=== PATIENT | male | born 1955 | race Caucasian/White ===

== ENCOUNTER 2018-10-25 17:49 | Inpatient (IN) | payer BC ==
[~2018-10-25 17:49] MED LIST: ISOVUE-370 76%-LOCM 1 ML ONE
[2018-10-25 18:17] LABS: #Basophils 0.1 thou/uL (0.0-0.2); #Eosinphils 0.2 thou/uL (0.0-0.7); #Lymphocytes 3.4 thou/uL (1.20-3.40); %Basophils 0.9 % (0.0-1.0); %Eosinophils 1.5 % (0.0-10.0); %Lymphocytes 26.8 % (21.0-51.0); %Monocytes 8.1 % (0.0-10.0); %Neutrophils 62.8 % (42.0-75.0); Hemoglobin 14.8 g/dL (14.0-18.0); Mean Corpuscular HGB CONC 32.6 g/dL (32.0-36.0); Mean Corpuscular Hemoglobin 28.2 pg (27.0-31.0); Mean Corpuscular Volume 86.5 fL (78.0-98.0); Mean Platelet Volume 7.7 fL (7.4-10.4); Platelet Count 242 thou/uL (130-400); Red Blood Cell (RBC) Count 5.24 mill/uL (4.70-6.10); White Blood Cell (WBC) Count 12.7 thou/uL (4.8-10.8)
[2018-10-25] MEDS ORDERED: Aspirin Chewable 81 MG TAB ONE (18:35)
[2018-10-25] MEDS ORDERED: Magnesium 2 GM/50 ML BAG (IN WATER) ONE (18:35)
[2018-10-25 18:41] LABS: ALT (SGPT) 53 U/L (8-55); AST (SGOT) 46 U/L (5-34); Albumin 3.5 g/dL (3.4-4.8); Alkaline Phosphatase 51 U/L (40-150); Anion Gap 13 mmol/L (10-20); BUN (Urea Nitrogen) 25 mg/dL (8.4-25.7); Bilirubin, Total 0.5 mg/dL (0.2-1.2); CK (CPK) 196 U/L (30-200); Calc. Creatinine Clearance 0 mL/min (70-130); Calcium 8.6 mg/dL (7.8-10.44); Carbon Dioxide 22 mmol/L (23-31); Chloride 108 mmol/L (98-107); Estimated GFR-MDRD 75; Globulin 2.3 g/dL (2.4-3.5); Glucose 86 mg/dL (80-115); INR-International Normal Ratio 1.1; Potassium 4.2 mmol/L (3.5-5.1); Protein, Total 5.8 g/dL (5.8-8.1); Prothrombin Time 14.5 SEC (12.0-14.7); Sodium 139 mmol/L (136-145)
[2018-10-25 18:42] LABS: PTT 27.9 SEC (22.9-36.1)
[2018-10-25 18:43] LABS: D-Dimer Test 3.36 *mcg/mL (0.27-0.43)
--- NOTE | 2018-10-25 18:51 | RAD ---
Frontal radiograph chest: 10/25/2018 COMPARISON: None 10/25/2018 HISTORY: Difficulty breathing, shortness of breath FINDINGS: Cardiac silhouette is prominent. Lungs are clear. No pneumothorax, pleural fluid, focal con solidation, or alveolar edema. IMPRESSION: Prominent cardiac silhouette with no focal consolidation or alveolar edema.
--- NOTE | 2018-10-25 19:21 | CT ---
CT angiogram chest: 10/25/2018 COMPARISON: None HISTORY: Shortness of breath, atrial fibrillation with rapid ventricular rate, assess for pulmonary e mbolism TECHNIQUE: Axial CT imaging at 2.5 mm intervals through the chest with IV contrast using a CT angiogr am protocol with coronal and sagittal 3-D reformatted imaging FINDINGS: No lymphadenopathy in the chest. Imaged upper abdomen demonstrates reflux of contrast media into the IVC and hepatic veins suggesting suboptimal cardiac output. Tiny pleural effusion noted on the right. Scattered coronary arterial calcification is present. No evidence for pulmonary arterial embolism. No pneumothorax. There is a nodule within the posterior aspect of the left upper lobe measuring 6 mm on image 30. There is a nodule within the left lower lobe on image 87 measuring approximately 1 cm. There is a nodule along the course of the minor fissur e measuring 7-8 mm. Review of the osseous structures demonstrates no worrisome lytic or blastic bone lesion. IMPRESSION: No evidence for pulmonary arterial embolism. Bilateral pulmonary nodules are noted measuring up to approximately 1 cm within the left lower lobe. Follow-up should be based on risk factors for malignancy. If the patient is high risk of malignancy, a PET/CT is advised. If the patient is low risk for malignancy, a follow-up CT examinatio n is advised in 3 months. Coronary arterial calcification. Reflux of contrast media into the hepatic veins and inferior vena cava as detailed above.
[2018-10-25] MEDS ORDERED: Acetaminophen 325 MG TAB PO PRN (21:15)
[2018-10-25] MEDS ORDERED: Ondansetron PF 4 MG/2 ML Vial IVP PRN (21:15)
[2018-10-25] MEDS ORDERED: Ondansetron ODT 4 MG TAB PO PRN (21:15)
[2018-10-25] MEDS ORDERED: Diltiazem 125 MG in Sodium Chloride 0.9% 100 ML IVPB SCH (21:30)
[2018-10-25 21:43] LABS: Troponin I 0.018 ng/mL (< 0.028)
[2018-10-25] MEDS ORDERED: Enoxaparin Sodium 100 MG/ML SYRINGE SC SCH (21:45)
[2018-10-25] MEDS ORDERED: Enoxaparin Sodium 40 MG/0.4 ML SYRINGE SC SCH (21:45)
[2018-10-25] MEDS ORDERED: Enoxaparin Sodium 40 MG/0.4 ML SYRINGE ONE (22:27)
[2018-10-25] MEDS ORDERED: Enoxaparin Sodium 100 MG/ML SYRINGE ONE (22:27)
[2018-10-26 00:55] LABS: Troponin I Less than 0.010 ng/mL (< 0.028)
--- NOTE | 2018-10-26 04:00 | HP ---
PRIMARY CARE DOCTOR: Dr. Brooke Green. CODE STATUS: Full code. TIME OF EVALUATION: 8:00 p.m. CHIEF COMPLAINT: Shortness of breath. HPI: This is a 63 y/o m pt with no significant pmh presented with SOB, The symptoms were present for the past week with no clear triggers, no alleviating factors associated with feeling dizzy and lightheaded. The symptoms were mild to moderate. The patient visited his doctor and an EKG was done. The patient was found to be in atrial fibrillation with RVR. For that reason, he was sent to the ER. The patient was controlled with diltiazem 20 mg IV and placed on Cardizem drip. At the time of my examination, rate is in control. The patient is on a drip. We will place on tele, symptoms have improved. CTA was negative for PE. Patient has associated paroxysmal nocturnal dyspnea. REVIEW OF SYSTEMS: CONSTITUTIONAL: No fever, chills, or generalized weakness. RESPIRATORY: No cough, sputum production. The patient did have some shortness of breath the past week. No sore throat associated. CARDIOVASCULAR: No chest pain or palpitations. GASTROINTESTINAL: No nausea, no vomiting, diarrhea, or abdominal pain. [employer]ATOR: The patient is dizzy and feeling lightheaded. No headache. GENITOURINARY: No burning on urination. EXTREMITIES: Bilateral leg swelling. All other systems were reviewed and negative except for the findings mentioned above. PAST MEDICAL HISTORY: The patient reported no past medical history. PAST SURGICAL HISTORY: Right eye surgery, hernia surgery. PSYCH HISTORY: No previous psych history. FAMILY HISTORY:Reviewed and non contributory to current presentation. SOCIAL HISTORY: No alcohol. No drugs. No smoking history. ALLERGIES: NO KNOWN DRUG ALLERGIES REPORTED. MEDICATIONS: None. PHYSICAL EXAMINATION: VITAL SIGNS: On presentation blood pressure 122/82 with heart rate 99, respiratory rate was 19, temperature 98.1. Pain was 0/10. Oxygen saturation was 96% on room air. GENERAL APPEARANCE: The patient is alert, oriented, not in acute distress. HEENT: Eyes, normal conjunctiva. Moist oral mucosa. Anicteric. No JVD. RESPIRATORY: Bilateral air entry. No rales. No wheezing. Symmetric expansion. CARDIOVASCULAR: The patient is tachycardic. Irregular rhythm. No murmurs. No gallop. Bilateral leg edema. ABDOMEN: Soft, the patient is obese. Normal bowel sounds. MUSCULOSKELETAL: Baseline range of motion and strength. No tenderness. SKIN: Warm, intact. No pallor. No rash. No redness. Peripheral pulses are present. Capillary refill seems to be intact. NEUROLOGIC: No evidence of any new focal weakness. Baseline speech. Cranial nerves seems to be intact. PSYCHIATRIC: The patient is in good mood. No anxiety. Optimal judgment. LABORATORY DATA: EKG was reviewed. The patient has atrial fibrillation with RVR. Heart rate of 115, QRS 120, QT corrected 442. Chest CT angio was done. The patient has bilateral pulmonary nodules measuring up to approximately 1 cm in the left lower lobe. Followup should be based on risk factor for malignancy, patient is at risk of malignancy. A PET the CT is advised. The patient is low risk of malignancy. A followup CT examination is advised in 3 months. Coronary arterial calcification , reflux of contrast media into the hepatic vein and inferior vena cava as detailed above. This suggest suboptimal cardiac output. Chest x-ray was reviewed. The patient has prominent cardiac silhouette with no focal consolidation or alveolar edema. LABORATORY DATA: Reviewed. The patient has white count 12.7, hemoglobin 14.8, MCV 86.5, platelet count 242. Coagulation was normal except for the D-dimer that was 3.36. Chemistry; the patient has sodium 139, potassium 4.2, chloride 108, carbon dioxide 22, anion gap 13, BUN 25, creatinine 1.01, GFR 75, glucose 86, calcium 9.6, total bilirubin 0.5, AST 46, ALT 53, alkaline phosphatase 51. Troponins were negative x3. Beta natriuretic peptide 587. Serum total protein 5.8, albumin 3.5, globulin 2.3. ASSESSMENT AND PLAN: The patient will be placed in the hospital with following medical problems: 1. Atrial fibrillation with rapid ventricular response. The patient has been started on Cardizem drip. The patient will follow with Dr. Jenkins as outpatient , the last followup of the patient was around 6 months ago. We will consult Dr. Jenkins for further recommendations. He also reported he had an echo done that is not in our records, might have been done by Dr. Jenkins as outpatient. Therefore , no other procedures or further workup as Cardiology evaluation is done. 2. Patient is obese, weight loss is advised. 3. Deep venous thrombosis prophylaxis. Job ID: [id number] [facility]
[2018-10-26 04:54] LABS: #Basophils 0.1 thou/uL (0.0-0.2); #Eosinphils 0.3 thou/uL (0.0-0.7); #Lymphocytes 2.6 thou/uL (1.20-3.40); #Neutrophils 7.3 thou/uL (1.40-6.50); %Basophils 0.8 % (0.0-1.0); %Eosinophils 2.6 % (0.0-10.0); %Lymphocytes 22.8 % (21.0-51.0); %Monocytes 9.1 % (0.0-10.0); %Neutrophils 64.7 % (42.0-75.0); Hemoglobin 14.2 g/dL (14.0-18.0); Mean Corpuscular HGB CONC 33.1 g/dL (32.0-36.0); Mean Corpuscular Hemoglobin 28.8 pg (27.0-31.0); Mean Corpuscular Volume 87.1 fL (78.0-98.0); Mean Platelet Volume 8.3 fL (7.4-10.4); Platelet Count 223 thou/uL (130-400); RBC Distribution Width 12.9 % (11.5-14.5); Red Blood Cell (RBC) Count 4.94 mill/uL (4.70-6.10); White Blood Cell (WBC) Count 11.2 thou/uL (4.8-10.8)
[2018-10-26 05:14] LABS: Anion Gap 11 mmol/L (10-20); BUN (Urea Nitrogen) 23 mg/dL (8.4-25.7); Calc. Creatinine Clearance 0 mL/min (70-130); Calcium 8.3 mg/dL (7.8-10.44); Carbon Dioxide 24 mmol/L (23-31); Chloride 110 mmol/L (98-107); Estimated GFR-MDRD 80; Glucose 115 mg/dL (80-115); Potassium 4.2 mmol/L (3.5-5.1); Sodium 141 mmol/L (136-145)
[2018-10-26] MEDS ORDERED: Enoxaparin Sodium 100 MG/ML SYRINGE ONE (08:59)
[2018-10-26] MEDS ORDERED: Aspirin 325 MG TAB ONE (08:59)
[2018-10-26] MEDS ORDERED: Enoxaparin Sodium 40 MG/0.4 ML SYRINGE ONE (08:59)
[2018-10-26] MEDS: Enoxaparin Sodium 40 MG/0.4 ML SYRINGE SC SCH ×2 (09:06→20:12)
[2018-10-26] MEDS: Enoxaparin Sodium 100 MG/ML SYRINGE SC SCH ×2 (09:06→20:12)
[2018-10-26] MEDS: Aspirin 325 mg Enteric Coated Tablet PO SCH (09:06)
--- NOTE | 2018-10-26 15:47 | PDOC.PN ---
- Subjective Encounter Start Date: 10/26/18 Encounter Start Time: 15:45 Subjective: feels much better. no CP/palpitations/SOB//edema - Objective Resuscitation Status - Order Detail: 10/25/18 21:15 Resuscitation Status Routine Resuscitation Status: FULL: Full Resuscitation MAR Reviewed: Yes Result Diagrams: 10/26/18 04:09 10/26/18 04:09 Phys Exam - Physical Examination Constitutional: NAD HEENT: PERRLA, moist MMs, sclera anicteric, oral pharynx no lesions Neck: no nodes, no JVD, supple, full ROM Respiratory: no wheezing, no rales, no rhonchi, clear to auscultation bilateral Cardiovascular: no significant murmur, irregular Gastrointestinal: soft, non-tender, no distention, positive bowel sounds Musculoskeletal: no edema, pulses present Neurological: non-focal, normal sensation, moves all 4 limbs Psychiatric: normal affect, A&O x 3 Dx/Plan (1) Atrial fibrillation with RVR Code(s): I48.91 - UNSPECIFIED ATRIAL FIBRILLATION Status: Acute Comment: continue Cardiazem drip.rate controlled. also on Lovenox BID ,though low CHADSVasc score.ECHO.cardiology consulted - Plan DVT proph w/SCDs HD stable. awaiting cardiology recs -: prior OP work up including Stress test negative.get OP echo results * . Review of Systems - Review of Systems Constitutional: negative: fever, chills, sweats, weakness, malaise, other ENT: negative: Ear Pain, Ear Discharge, Nose Pain, Nose Discharge, Nose Congestion, Mouth Pain, Mouth Swelling, Throat Pain, Throat Swelling, Other Respiratory: negative: Cough, Dry, Shortness of Breath, Hemoptysis, SOB with Excertion, Pleuritic Pain, Sputum, Wheezing Cardiovascular: negative: chest pain, palpitations, orthopnea, paroxysmal nocturnal dyspnea, edema, light headedness, other Gastrointestinal: negative: Nausea, Vomiting, Abdominal Pain, Diarrhea, Constipation, Melena, Hematochezia, Other Genitourinary: negative: Dysuria, Frequency, Incontinence, Hematuria, Retention , Other Musculoskeletal: negative: Neck Pain, Shoulder Pain, Arm Pain, Back Pain, Hand Pain, Leg Pain, Foot Pain, Other Skin: negative: Rash, Lesions, Steve, Bruising, Other Neurological: negative: Weakness, Numbness, Incoordination, Change in Speech, Confusion, Seizures, Other - Medications/Allergies Allergies/Adverse Reactions: Allergies Allergy/AdvReac Type Severity Reaction Status Date / Time No Known Allergies Allergy Unverified 10/25/18 18:40 Medications: Current Medications Acetaminophen (Tylenol) 650 mg PO Q4H PRN PRN Reason: Headache/Fever/Mild Pain (1-3) Aspirin (Ecotrin) 325 mg PO DAILY [facility] Last Admin: 10/26/18 09:06 Dose: 325 mg Enoxaparin Sodium (Lovenox) 40 mg SC 0900,2099 [facility] Last Admin: 10/26/18 09:06 Dose: 40 mg Enoxaparin Sodium (Lovenox) 100 mg SC 0900,2099 [facility] Last Admin: 10/26/18 09:06 Dose: 100 mg Diltiazem HCl 125 mg/ Sodium (Chloride) 125 mls @ 0 mls/hr IVPB INF [facility]; Protocol Ondansetron HCl (Zofran Odt) 4 mg PO Q6H PRN PRN Reason: Nausea/Vomiting Ondansetron HCl (Zofran) 4 mg IVP Q6H PRN PRN Reason: Nausea/Vomiting
[2018-10-26 18:36] VITALS: BMI 46.7
--- NOTE | 2018-10-26 20:00 | CON ---
DATE OF CONSULTATION: REASON FOR CONSULTATION: Atrial fibrillation. HISTORY OF PRESENT ILLNESS: Mr. Abdul is a pleasant 63-year-old gentleman, who is a patient Dr. Jenkins. He recently presented with atrial fibrillation with RVR. His main complaint was shortness of breath. This occurred in the last week. There is a questionable history of obstructive sleep apnea. No previous history of hypertension, diabetes, congestive heart failure, or previous stroke. CHADS score is felt to zero. His last stress test was performed on 04/21/2018 and found to have an LVEF of 51% with no significant ischemia present. Diagnosed with PACs in the past. PAST MEDICAL HISTORY: None. ALLERGIES: NONE. HOME MEDICATIONS: Include metoprolol. REVIEW OF SYSTEMS: A 10-point review of systems is reviewed as above, otherwise negative. PHYSICAL EXAMINATION: VITAL SIGNS: Blood pressure 119/87, pulse 78, and temperature 98.3. GENERAL: Patient is a pleasant male who is in no acute distress. The patient appears their stated age. NEUROLOGIC: The patient is alert and oriented x3 with no focal neurologic deficits. HEENT: Sclerae without icterus. Mouth has moist mucous membranes with normal pallor. NECK: No JVD. Carotid upstroke brisk. No bruits bilaterally. LUNGS: Clear to auscultation with unlabored respirations. BACK: No scoliosis or kyphosis. CARDIAC: Irregularly irregular with normal S1 and S2. No S3 or S4 noted. No significant rubs, murmurs, thrills, or gallops noted throughout the precordium. PMI is not displaced. There is no parasternal heave. ABDOMEN: Soft, nontender, nondistended. No peritoneal signs present. No hepatosplenomegaly. No abnormal striae. EXTREMITIES: 2+ femoral and 2+ dorsalis pedis pulses. No cyanosis, clubbing, or edema. SKIN: No gross abnormalities. PERTINENT LABORATORY DATA: Hemoglobin 14.2 and hematocrit 43.1. Creatinine 0.95. BNP of 47. IMPRESSION: Atrial fibrillation with rapid ventricular response. RECOMMENDATIONS: At this point, I would recommend proceeding with a continued rate control. He is currently on IV Cardizem. We will transition to p.o. Cardizem. We will give 60 mg p.o. q.6 hours and increase as needed to titrate off IV Cardizem. His last echo performed in the office dated 04/20/2018 with LVEF 55% to 60%. Further recommendations per Dr. Allen Jenkins, in a.m. Job ID: [id number]
[2018-10-27 05:10] LABS: Hemoglobin 14.5 g/dL (14.0-18.0); Platelet Count 231 thou/uL (130-400)
[2018-10-27] MEDS: Aspirin 325 mg Enteric Coated Tablet PO SCH (08:14)
[2018-10-27] MEDS: Enoxaparin Sodium 40 MG/0.4 ML SYRINGE SC SCH ×2 (08:17→14:49)
[2018-10-27] MEDS: Enoxaparin Sodium 100 MG/ML SYRINGE SC SCH ×2 (08:18→14:49)
[2018-10-27] MEDS ORDERED: Dronedarone HCl 400 MG TAB PO SCH ×2 (15:00→17:00)
--- NOTE | 2018-10-27 15:12 | PDOC.PN ---
- Subjective Encounter Start Date: 10/27/18 Encounter Start Time: 15:09 Subjective: feels better.eager to go home -: no CP/SOB/palpitations - Objective Resuscitation Status - Order Detail: 10/25/18 21:15 Resuscitation Status Routine Resuscitation Status: FULL: Full Resuscitation MAR Reviewed: Yes Vital Signs & Weight: Vital Signs (12 hours) Temp Pulse Resp BP Pulse Ox 10/27/18 11:34 98.0 F 87 18 119/81 97 10/27/18 08:14 96 10/27/18 07:52 97.9 F 81 16 130/88 96 10/27/18 03:25 98.0 F 74 16 132/61 95 Weight Weight 326 lb I&O: 10/26/18 10/27/18 10/28/18 06:59 06:59 06:59 Intake Total 354 Balance 354 Result Diagrams: 10/27/18 04:26 10/26/18 04:09 Phys Exam - Physical Examination Constitutional: NAD HEENT: PERRLA, moist MMs, sclera anicteric, oral pharynx no lesions Neck: no nodes, no JVD, supple, full ROM Respiratory: no wheezing, no rales, no rhonchi, clear to auscultation bilateral Cardiovascular: RRR, no significant murmur Gastrointestinal: soft, non-tender, no distention, positive bowel sounds Musculoskeletal: no edema, pulses present Neurological: non-focal, normal sensation, moves all 4 limbs Psychiatric: normal affect, A&O x 3 Dx/Plan (1) Atrial fibrillation with RVR Code(s): I48.91 - UNSPECIFIED ATRIAL FIBRILLATION Status: Acute Comment: continue Cardiazem drip.rate controlled.Also started on PO cardiazem. OAC decision per cardiology.. .cardiology consulted - Plan plan discussed w/ family, out of bed/ambulate, DVT proph w/SCDs HD stable. -: off of toprol to accomodate for CCB. -: monitor * . Review of Systems - Review of Systems Constitutional: negative: fever, chills, sweats, weakness, malaise, other ENT: negative: Ear Pain, Ear Discharge, Nose Pain, Nose Discharge, Nose Congestion, Mouth Pain, Mouth Swelling, Throat Pain, Throat Swelling, Other Respiratory: negative: Cough, Dry, Shortness of Breath, Hemoptysis, SOB with Excertion, Pleuritic Pain, Sputum, Wheezing Cardiovascular: negative: chest pain, palpitations, orthopnea, paroxysmal nocturnal dyspnea, edema, light headedness, other Gastrointestinal: negative: Nausea, Vomiting, Abdominal Pain, Diarrhea, Constipation, Melena, Hematochezia, Other Genitourinary: negative: Dysuria, Frequency, Incontinence, Hematuria, Retention , Other Musculoskeletal: negative: Neck Pain, Shoulder Pain, Arm Pain, Back Pain, Hand Pain, Leg Pain, Foot Pain, Other Neurological: negative: Weakness, Numbness, Incoordination, Change in Speech, Confusion, Seizures, Other - Medications/Allergies Allergies/Adverse Reactions: Allergies Allergy/AdvReac Type Severity Reaction Status Date / Time No Known Allergies Allergy Verified 10/26/18 18:38 Medications: Current Medications Acetaminophen (Tylenol) 650 mg PO Q4H PRN PRN Reason: Headache/Fever/Mild Pain (1-3) Aspirin (Ecotrin) 325 mg PO DAILY [facility] Last Admin: 10/27/18 08:14 Dose: 325 mg Diltiazem HCl (Cardizem) 60 mg PO [facility] Last Admin: 10/27/18 11:32 Dose: 60 mg Enoxaparin Sodium (Lovenox) 40 mg SC 0900,2100 [facility] Last Admin: 10/27/18 14:49 Dose: 40 mg Enoxaparin Sodium (Lovenox) 100 mg SC 0900,2100 [facility] Last Admin: 10/27/18 14:49 Dose: 100 mg Diltiazem HCl 125 mg/ Sodium (Chloride) 125 mls @ 0 mls/hr IVPB INF [facility]; Protocol Last Admin: 10/26/18 22:43 Dose: 125 mls Ondansetron HCl (Zofran Odt) 4 mg PO Q6H PRN PRN Reason: Nausea/Vomiting Ondansetron HCl (Zofran) 4 mg IVP Q6H PRN PRN Reason: Nausea/Vomiting
[2018-10-27] MEDS ORDERED: PROPOFOL 20 ML ONE (15:13)
--- NOTE | 2018-10-27 16:16 | ECHO ---
DATE OF SERVICE: 10/27/18 PREPROCEDURE DIAGNOSIS: Atrial fibrillation. PROCEDURES PERFORMED: Synchronized cardioversion. SUMMARY: The patient is a pleasant 63-year-old white gentleman who comes to the hospital for palpitations. Sandra alanis was found to be in atrial fibrillation. He was slowed down with a Diltiazem drip and full dose Lovenox for anticoagulation. He was brought down for rhythm control with cardioversion. USAMA ruled out thrombus. The initial shock was given at 100 joules which was unsuccessfully. The second synchronized shock was given at 200 joules successfully converting him to sinus rhythm in the 80s. The patient tolerated th e procedure well. RECOMMENDATIONS: 1. Continued Multaq and Eliquis. 2. Follow-up in the office as scheduled next week. 3. May discharge home later today.
[2018-10-27 17:35] VITALS: BP 127/84; TEMP 97.7
--- NOTE | 2018-10-27 19:34 | DIS ---
DATE OF ADMISSION: 10/25/2018 DATE OF DISCHARGE: 10/27/2018 CONDITION AT THE TIME OF DISCHARGE: stable and improved. DISCHARGE DISPOSITION: Home. DISCHARGE DIAGNOSES: Atrial fibrillation with rapid ventricular rate. DISCHARGE MEDICATIONS: 1. Eliquis 5 mg p.o. b.i.d. 2. Multaq 400 mg p.o. b.i.d. IN-HOUSE CONSULTATIONS: Cardiology doctors; 1. Jimmy Bonilla MD. 2. Allen Jenkins MD. PROCEDURES DONE IN THE HOSPITAL: 1. CT angio of the thorax, which is negative for any evidence of pulmonary embolism. Coronary artery calcification is seen. Bilateral small 1 cm pulmonary nodules are seen. 2. Transesophageal echocardiogram on 10/27/2018 followed by successful direct current cardioversion. Transesophageal echocardiogram was negative for any thrombus. HISTORY OF PRESENT ILLNESS: Mr. Abdul is a pleasant 63-year-old male without any significant past medical history, who does not take any medications: Presented to the emergency room with complaints of shortness of breath associated with dizziness and lightheadedness. In the emergency room, an EKG was done and the patient was found to be in atrial fibrillation with RVR. He was given IV diltiazem push and was started on Cardizem drip. A CT angio was done, which was negative for PE. He was admitted to telemetry unit for further evaluation and care. He was otherwise hemodynamically stable upon presentation. Troponins were negative x3 and BNP was 587. Please see admission history and physical dictated by Dr. Moran on 10/26/2018 for full details. Cardiology was consulted. The patient recently had outpatient workup done for arrhythmia like activity and was found to have PVCs by Dr. Jenkins. Reportedly, a stress test and echo were done, which were unremarkable. HOSPITAL COURSE: The patient did fairly well throughout his hospitalization. Cardizem drip was tapered off and he was started on oral Cardizem by Dr. Bonilla. Later, Dr. Jenkins saw him and was even found to be in atrial fibrillation, so he underwent successful cardioversion. He was started on therapeutic Lovenox for anticoagulation, which was continued. USAMA ruled out thrombus, so cardioversion was done which was successful. Post cardioversion, he is continued on anticoagulation. He is started on Eliquis and Multaq. Cardiology has cleared him for discharge. I discussed the discharge plan with the patient and he is eager to go home and feels well at this time. He will follow up with Dr. Jenkins early next week. He already has an appointment. New medication prescriptions were given. Discharge was also discussed with Dr. Jenkins, who agrees with the discharge at this time. Please see hospitalist progress note from today's date for further details including [id number] interaction. PRIMARY CARE PHYSICIAN: Brooke Green MD Job ID: [id number]
[2018-10-27] MEDS ORDERED: Apixaban 5 MG TAB PO SCH (21:00)
== END 2018-10-27 17:56 | disposition home or self-care (01) | DRG 309 ==
LOC: ERS 17:49 → ERHOLD 21:05 → 2NO 10-26 17:18
PROVIDERS: ADMIT Hospitalist; ATTEND Hospitalist
PROC: 5A2204Z Restoration of Cardiac Rhythm, Single (ICD-10-PCS; principal; 2018-10-27)
PROC: B24BZZ4 Ultrasonography of Heart with Aorta, Transesophageal (ICD-10-PCS; 2018-10-27)
DX: I48.91 Unspecified atrial fibrillation (principal); Z68.42 Body mass index [BMI] 45.0-49.9, adult; E66.9 Obesity, unspecified; Z98.890 Other specified postprocedural states
CPT/HCPCS: 36415; 71045; 71275; 80048; 80053; 82550; 83690; 83880; 84443; 84484; 85014; 85018; 85025; 85049; 85379; 85610; 85730; 92960; 93005; 93312; J1650; J2704; J3475; J3490; Q9966

== ENCOUNTER 2021-04-18 10:58 | Outpatient (CLI) | payer BC | END 2021-04-18 10:59 | disposition home or self-care (01) | LOC: BICRAD 10:58 | PROVIDERS: ATTEND Podiatrist | DX: M19.072 Primary osteoarthritis, left ankle and foot (principal); M25.775 Osteophyte, left foot ==

== ENCOUNTER 2021-05-19 07:30 | Outpatient (CLI) | payer BC ==
[2021-05-19] MEDS ORDERED: Magnevist 469MG/ML 20 ML VIAL ONE (11:21)
== END 2021-05-19 07:31 | disposition home or self-care (01) ==
LOC: BICMRI 07:30
PROVIDERS: ATTEND Otolaryngology Otolaryngic Allergy
DX: H91.22 Sudden idiopathic hearing loss, left ear (principal)
CPT/HCPCS: 70553; 82565

== ENCOUNTER 2021-08-01 16:58 | Outpatient (CLI) | payer BC ==
[2021-08-01 17:49] LABS: Anion Gap 13 mmol/L (10-20); BUN (Urea Nitrogen) 26 mg/dL (8.4-25.7); Calc. Creatinine Clearance 0 mL/min (70-130); Calcium 8.5 mg/dL (7.8-10.44); Carbon Dioxide 26 mmol/L (23-31); Chloride 107 mmol/L (98-107); Glucose 89 mg/dL (80-115); Potassium 4.3 mmol/L (3.5-5.1); Sodium 142 mmol/L (136-145)
[2021-08-01 17:53] LABS: #Basophils 0.1 10x3/uL (0.0-0.2); #Eosinphils 0.2 10x3/uL (0.0-0.5); #Monocytes 1.1 10x3/uL (0.0-1.1); #Neutrophils 7.4 10x3/uL (1.5-8.4); %Basophils 0.7 % (0.0-2.0); %Eosinophils 1.7 % (0.0-6.0); %Lymphocytes 26.7 % (18.0-47.0); %Neutrophils 61.4 % (40.0-75.0); Hemoglobin 15.6 g/dL (13.5-17.5); Mean Corpuscular HGB CONC 32.8 g/dL (32.0-36.0); Mean Corpuscular Hemoglobin 28.8 pg (27.0-33.0); Mean Corpuscular Volume 87.6 fl (81.2-95.1); Mean Platelet Volume 9.5 fl (7.4-10.4); Platelet Count 265 10x3/uL (150-450); Red Blood Cell (RBC) Count 5.42 10x6/uL (4.32-5.72); White Blood Cell (WBC) Count 12.1 10x3/uL (3.5-10.5)
[2021-08-02 15:38] LABS: SARS-CoV-2 PCR by NAA Not Detected (NotDetected)
== END 2021-08-01 16:59 | disposition home or self-care (01) ==
LOC: LABBT 16:58
PROVIDERS: ATTEND Internal Medicine Cardiovascular Disease
DX: Z01.818 Encounter for other preprocedural examination (principal); Z20.822 Contact with and (suspected) exposure to COVID-19
CPT/HCPCS: 80048; 85025; 93005; 93010; U0003; U0005

== ENCOUNTER 2021-08-04 09:59 | Day surgery (SDC) | payer BC ==
[2021-08-01 14:05] VITALS: BMI 41.5
[2021-08-04] MEDS ORDERED: PROPOFOL 40 ML ONE (11:01)
[2021-08-04] MEDS ORDERED: Atropine Sulfate 1 mg/10 ml Syringe ONE ×2 (11:02→11:17)
[2021-08-04] MEDS ORDERED: EPINEPHrine 1 MG/ML AMP ONE (11:02)
== END 2021-08-04 11:55 | disposition home or self-care (01) ==
LOC: SDC 09:59
PROVIDERS: ATTEND Internal Medicine Cardiovascular Disease
PROC: 5A2204Z Restoration of Cardiac Rhythm, Single (ICD-10-PCS; principal; 2021-08-04)
DX: I48.0 Paroxysmal atrial fibrillation (principal); I42.9 Cardiomyopathy, unspecified; E78.00 Pure hypercholesterolemia, unspecified; Z79.01 Long term (current) use of anticoagulants; Z79.82 Long term (current) use of aspirin; Z79.899 Other long term (current) drug therapy
CPT/HCPCS: 92960; 93005; 93010; J0171; J0461; J2704

== ENCOUNTER 2022-03-20 07:32 | Outpatient (CLI) | payer BC ==
[2022-03-20 10:43] LABS: Hemoglobin 14.4 g/dL (13.5-17.5); Mean Corpuscular HGB CONC 34.1 g/dL (32.0-36.0); Mean Corpuscular Hemoglobin 29.2 pg (27.0-33.0); Mean Corpuscular Volume 85.6 fl (81.2-95.1); Platelet Count 276 10x3/uL (150-450); RBC Distribution Width 12.6 % (11.5-14.5); Red Blood Cell (RBC) Count 4.93 10x6/uL (4.32-5.72); White Blood Cell (WBC) Count 8.3 10x3/uL (3.5-10.5)
[2022-03-20 10:52] LABS: INR-International Normal Ratio 1.1; PTT 35.1 sec (22.0-33.0); Prothrombin Time 11.9 sec (9.5-12.1)
[2022-03-20 10:53] LABS: Anion Gap 13 mmol/L (10-20); BUN (Urea Nitrogen) 18 mg/dL (8.4-25.7); Calc. Creatinine Clearance 0 mL/min (70-130); Calcium 8.7 mg/dL (7.8-10.44); Carbon Dioxide 25 mmol/L (23-31); Chloride 106 mmol/L (98-107); Estimated GFR 98; Glucose 77 mg/dL (80-115); Sodium 139 mmol/L (136-145)
== END 2022-03-20 07:33 | disposition home or self-care (01) ==
LOC: LABBT 07:32
PROVIDERS: ATTEND Internal Medicine Cardiovascular Disease
DX: Z01.818 Encounter for other preprocedural examination (principal); Z51.81 Encounter for therapeutic drug level monitoring; I48.0 Paroxysmal atrial fibrillation; I51.9 Heart disease, unspecified; Z79.01 Long term (current) use of anticoagulants; Z20.822 Contact with and (suspected) exposure to COVID-19
CPT/HCPCS: 80048; 85027; 85610; 85730; 87811; 93005; 93010

== ENCOUNTER 2022-03-25 05:54 | Day surgery (SDC) | payer BC ==
[2022-03-23 13:13] VITALS: BMI 41.5
[2022-03-25] MEDS ORDERED: Isoproterenol 0.2 MG/1 ML AMP ONE (06:39)
[2022-03-25] MEDS ORDERED: Protamine Sulfate 50 MG/5 ML VIAL ONE ×2 (06:39→11:10)
[2022-03-25] MEDS ORDERED: Heparin 10,000 UNITS/ 10 ML VIAL ONE (06:39)
[2022-03-25] MEDS ORDERED: Heparin 25,000 units/D5W 500 ML ONE (06:39)
[2022-03-25] MEDS ORDERED: Fentanyl 100 MCG/2 ML VIAL ONE (07:23)
[2022-03-25] MEDS ORDERED: Rocuronium Bromide 10 MG/ML (10ML VIAL) ONE (08:00)
[2022-03-25] MEDS ORDERED: Ondansetron PF 4 MG/2 ML Vial ONE (08:00)
[2022-03-25] MEDS ORDERED: Dexamethasone 20 MG/5 ML VIAL ONE (08:00)
[2022-03-25] MEDS ORDERED: Lidocaine 1% MPF 2 ML VIAL ONE (08:00)
[2022-03-25] MEDS ORDERED: PROPOFOL 200 MG/20 ML VIAL ONE (08:00)
[2022-03-25] MEDS ORDERED: Rocuronium Bromide 50 MG/5 ML VIAL ONE (10:59)
[2022-03-25] MEDS ORDERED: SUGAMMADEX SODIUM 200 MG/2 ML VIAL ONE (12:34)
== END 2022-03-25 16:09 | disposition home or self-care (01) ==
LOC: SDC 05:54
PROVIDERS: ATTEND Internal Medicine Cardiovascular Disease
PROC: 02K83ZZ Map Conduction Mechanism, Percutaneous Approach (ICD-10-PCS; principal; 2022-03-25)
PROC: 4A0234Z Measurement of Cardiac Electrical Activity, Percutaneous Approach (ICD-10-PCS; principal; 2022-03-25)
PROC: 4A023FZ Measurement of Cardiac Rhythm, Percutaneous Approach (ICD-10-PCS; principal; 2022-03-25)
PROC: 02583ZZ Destruction of Conduction Mechanism, Percutaneous Approach (ICD-10-PCS; principal; 2022-03-25)
DX: I48.0 Paroxysmal atrial fibrillation (principal); I48.92 Unspecified atrial flutter; I50.20 Unspecified systolic (congestive) heart failure; I08.1 Rheumatic disorders of both mitral and tricuspid valves; I25.10 Atherosclerotic heart disease of native coronary artery without angina pectoris; I42.9 Cardiomyopathy, unspecified; I45.10 Unspecified right bundle-branch block; E78.5 Hyperlipidemia, unspecified; E66.01 Morbid (severe) obesity due to excess calories; Z68.41 Body mass index [BMI] 40.0-44.9, adult; Z79.01 Long term (current) use of anticoagulants; Z79.899 Other long term (current) drug therapy
CPT/HCPCS: 85347; 93005; 93622; 93623; 93656; 93657; 93662; C1732; C1760; C1769; C1894; J1100; J1644; J2405; J2704; J2720; J3010

== ENCOUNTER 2023-06-16 08:26 | Day surgery (SDC) | payer BC ==
[2023-06-14 08:35] VITALS: BMI 42.9
[2023-06-14 09:06] LABS: Hematocrit 45.1 % (38.8-50.0); Hemoglobin 14.9 g/dL (13.5-17.5); Mean Corpuscular Hemoglobin 28.4 pg (27.0-33.0); Mean Corpuscular Volume 86.1 fl (81.2-95.1); Mean Platelet Volume 9.7 fl (7.4-10.4); Platelet Count 274 10x3/uL (150-450); RBC Distribution Width 13.4 % (11.5-14.5); Red Blood Cell (RBC) Count 5.24 10x6/uL (4.32-5.72); White Blood Cell (WBC) Count 10.4 10x3/uL (3.5-10.5)
[2023-06-14 09:15] LABS: INR-International Normal Ratio 1.2; PTT 37.2 sec (22.0-33.0); Prothrombin Time 12.9 sec (9.5-12.1)
[2023-06-14 09:22] LABS: Anion Gap 14 mmol/L (10-20); BUN (Urea Nitrogen) 25 mg/dL (8.4-25.7); Calc. Creatinine Clearance 144 mL/min (70-130); Calcium 8.3 mg/dL (7.8-10.44); Carbon Dioxide 23 mmol/L (23-31); Chloride 109 mmol/L (98-107); Estimated GFR 83; Glucose 99 mg/dL (80-115); Potassium 4.6 mmol/L (3.5-5.1); Sodium 141 mmol/L (136-145)
[2023-06-16] MEDS ORDERED: Protamine Sulfate 50 MG/5 ML VIAL ONE (11:09)
[2023-06-16] MEDS ORDERED: Heparin 25,000 units/D5W 500 ML ONE (11:09)
[2023-06-16] MEDS ORDERED: Heparin 10,000 UNITS/ 10 ML VIAL ONE (11:09)
[2023-06-16] MEDS ORDERED: PHENYLEPHRINE-NS 100 MCG/ML 10 ML SYRINGE ONE (12:20)
[2023-06-16] MEDS ORDERED: Rocuronium Bromide 10 MG/ML (10ML VIAL) ONE (12:20)
[2023-06-16] MEDS ORDERED: Dexamethasone 20 MG/5 ML VIAL ONE (12:20)
[2023-06-16] MEDS ORDERED: PROPOFOL 200 MG/20 ML VIAL ONE (12:20)
[2023-06-16] MEDS ORDERED: Lidocaine 1% PF 5 ML VIAL ONE (12:20)
[2023-06-16] MEDS ORDERED: Isoproterenol 0.2 MG/1 ML AMP ONE (14:12)
[2023-06-16] MEDS ORDERED: Furosemide 40 MG/4 ML VIAL SLOW IVP SCH (16:30)
[2023-06-16] MEDS ORDERED: Potassium Chloride 20 MEQ TAB PO SCH (16:30)
== END 2023-06-16 21:15 | disposition home or self-care (01) ==
LOC: SDC 08:26
PROVIDERS: ATTEND Internal Medicine Cardiovascular Disease
PROC: 02563ZZ Destruction of Right Atrium, Percutaneous Approach (ICD-10-PCS; principal; 2023-06-16)
DX: I48.0 Paroxysmal atrial fibrillation (principal); I45.10 Unspecified right bundle-branch block; I42.9 Cardiomyopathy, unspecified; E78.5 Hyperlipidemia, unspecified; F10.90 Alcohol use, unspecified, uncomplicated; Z79.01 Long term (current) use of anticoagulants; Z79.899 Other long term (current) drug therapy
CPT/HCPCS: 80048; 85027; 85347; 85610; 85730; 93005; 93622; 93623; 93655; 93656; 93657; C1732; C1759; C1760; C1884; C1893; C1894; J1100; J1644; J1940; J2704; J2720

== ENCOUNTER 2024-07-21 12:29 | Inpatient (IN) | payer MEDICARE, OTHER ==
[2024-07-21 13:36] LABS: #Basophils 0.05 10x3/uL (0.0-0.2); #Eosinophils Less than 0.03 10x3/uL (0.0-0.7); %Basophils 0.6 % (0.0-1.0); %Eosinophils 0.2 % (0.0-10.0); %Lymphocytes 19.1 % (21.0-51.0); %Monocytes 7.8 % (0.0-10.0); Hematocrit 44.6 % (42.0-52.0); Hemoglobin 14.7 g/dL (14.0-18.0); Mean Corpuscular Hemoglobin 28.2 pg (27.0-31.0); Mean Corpuscular Volume 85.6 fL (78.0-98.0); Mean Platelet Volume 10.1 fL (7.4-10.4); Platelet Count 249 10x3/uL (130-400); RBC Distribution Width 14.3 % (11.5-14.5); Red Blood Cell (RBC) Count 5.21 mill/uL (4.70-6.10)
[2024-07-21 13:58] LABS: ALT (SGPT) 16 U/L (8-55); AST (SGOT) 20 U/L (5-34); Albumin 3.3 g/dL (3.4-4.8); Alkaline Phosphatase 39 U/L (40-110); Anion Gap 16 mmol/L (10-20); BUN (Urea Nitrogen) 16 mg/dL (8.4-25.7); Bilirubin, Total 0.5 mg/dL (0.2-1.2); Calc. Creatinine Clearance 0 mL/min (70-130); Calcium 8.9 mg/dL (7.8-10.44); Carbon Dioxide 24 mmol/L (23-31); Chloride 104 mmol/L (98-107); Estimated GFR 79; Globulin 2.8 g/dL (2.4-3.5); Glucose 81 mg/dL (80-115); Potassium 4.5 mmol/L (3.5-5.1); Protein, Total 6.1 g/dL (5.8-8.1); Sodium 139 mmol/L (136-145)
[2024-07-21 14:03] LABS: Troponin I Less than 0.010 ng/mL (< 0.028)
[2024-07-21 14:17] LABS: Actual Bicarbonate (HCO3v) 22.9 mEq/L (22-28); Calcium, Ionized (venous) 1.06 mmol/L (1.16-1.32); Chloride (VBG) 104 mmol/L (98-106); Hematocrit-VBG 41 % (42.0-52.0); Hemoglobin (Hb) 14.1 g/dL (12.6-17.4); Potassium (VBG) 4.42 mmol/L (3.70-5.30); Sodium 139 mmol/L (133-146); pH (venous) 7.333 (7.32-7.43)
[2024-07-21] MEDS ORDERED: Digoxin 0.5 MG/2 ML AMP ONE (15:39)
[2024-07-21] MEDS ORDERED: Electrolyte Replacement Protocol FS SCH (16:54)
[2024-07-21] MEDS ORDERED: Ondansetron PF 4 MG/2 ML Vial IVP PRN (16:55)
[2024-07-21] MEDS ORDERED: Acetaminophen 325 MG TAB PO PRN (16:55)
[2024-07-21 17:17] LABS: Magnesium 1.6 mg/dL (1.6-2.6)
[2024-07-21] MEDS: Sacubitril 24MG/Valsartan 26 MG TAB PO SCH (20:50)
[2024-07-21] MEDS: Magnesium 2 GM/50 ML(in water) 2 GM in Premix 1 BAG IVPB SCH (23:08)
[2024-07-22 03:56] LABS: #Basophils 0.04 10x3/uL (0.0-0.2); %Basophils 0.4 % (0.0-1.0); %Eosinophils 1.8 % (0.0-10.0); %Lymphocytes 25.5 % (21.0-51.0); %Monocytes 9.4 % (0.0-10.0); %Neutrophils 62.6 % (42.0-75.0); Hematocrit 40.7 % (42.0-52.0); Hemoglobin 13.4 g/dL (14.0-18.0); Mean Corpuscular HGB CONC 32.9 g/dL (32.0-36.0); Mean Corpuscular Hemoglobin 28.2 pg (27.0-31.0); Mean Corpuscular Volume 85.5 fL (78.0-98.0); Mean Platelet Volume 10.4 fL (7.4-10.4); Platelet Count 209 10x3/uL (130-400); RBC Distribution Width 14.3 % (11.5-14.5); Red Blood Cell (RBC) Count 4.76 mill/uL (4.70-6.10)
[2024-07-22 04:26] LABS: Anion Gap 16 mmol/L (10-20); BUN (Urea Nitrogen) 16 mg/dL (8.4-25.7); Calc. Creatinine Clearance 123 mL/min (70-130); Calcium 8.2 mg/dL (7.8-10.44); Carbon Dioxide 22 mmol/L (23-31); Chloride 107 mmol/L (98-107); Estimated GFR 91; Glucose 67 mg/dL (80-115); Magnesium 1.9 mg/dL (1.6-2.6); Potassium 3.9 mmol/L (3.5-5.1); Sodium 141 mmol/L (136-145)
[2024-07-22] MEDS: Magnesium 2 GM/50 ML(in water) 2 GM in Premix 1 BAG IVPB SCH (09:14)
[2024-07-22] MEDS: Dronedarone HCl 400 MG TAB PO SCH (20:16)
[2024-07-22 22:01] VITALS: BMI 34.4
[2024-07-23 04:56] LABS: Anion Gap 11 mmol/L (10-20); BUN (Urea Nitrogen) 15 mg/dL (8.4-25.7); Calc. Creatinine Clearance 120 mL/min (70-130); Calcium 8.3 mg/dL (7.8-10.44); Carbon Dioxide 26 mmol/L (23-31); Chloride 104 mmol/L (98-107); Estimated GFR 88; Glucose 75 mg/dL (80-115); Magnesium 1.8 mg/dL (1.6-2.6); Sodium 137 mmol/L (136-145)
[2024-07-23] MEDS: Dronedarone HCl 400 MG TAB PO SCH (09:51)
[2024-07-23] MEDS: Magnesium 2 GM/50 ML(in water) 2 GM in Premix 1 BAG IVPB SCH (09:51)
[2024-07-23] MEDS ORDERED: Electrolyte Replacement Protocol FS PRN (17:00)
[2024-07-24 04:28] LABS: Anion Gap 13 mmol/L (10-20); BUN (Urea Nitrogen) 13 mg/dL (8.4-25.7); Calc. Creatinine Clearance 120 mL/min (70-130); Calcium 8.3 mg/dL (7.8-10.44); Carbon Dioxide 26 mmol/L (23-31); Chloride 105 mmol/L (98-107); Estimated GFR 88; Glucose 87 mg/dL (80-115); Magnesium 1.8 mg/dL (1.6-2.6); Sodium 140 mmol/L (136-145)
[2024-07-24] MEDS: Magnesium 2 GM/50 ML(in water) 2 GM in Premix 1 BAG IVPB SCH (09:20)
[2024-07-24] MEDS ORDERED: Loratadine/Pseudoephedrine 10/240 mg Tablet PO PRN (10:35)
[2024-07-24 11:46] VITALS: TEMP 98.2
[2024-07-24 16:29] VITALS: BP 138/87
[2024-07-25] MEDS ORDERED: Montelukast Sodium 10 mg Tablet PO SCH (09:00)
== END 2024-07-24 18:07 | disposition home or self-care (01) | DRG 309 ==
LOC: ERS 12:29 → PCU 17:00 → OBSVTOIN 07-23 13:54
PROVIDERS: ADMIT Internal Medicine; ATTEND Family Medicine
DX: I48.0 Paroxysmal atrial fibrillation (principal); I50.22 Chronic systolic (congestive) heart failure; I95.89 Other hypotension; E16.2 Hypoglycemia, unspecified; E66.9 Obesity, unspecified; Z68.34 Body mass index [BMI] 34.0-34.9, adult; I45.10 Unspecified right bundle-branch block; Z79.899 Other long term (current) drug therapy; Z79.01 Long term (current) use of anticoagulants
CPT/HCPCS: 36415; 36416; 70450; 71045; 80048; 80053; 82805; 83605; 83735; 83880; 84484; 85025; 87040; 93005; 93306; 94760; 96361; 96365; 96374; 96375; 96376; G0378; J1160; J3475

== ENCOUNTER 2025-05-09 08:31 | Day surgery (SDC) | payer MEDICARE, OTHER ==
[2025-05-08 14:51] VITALS: BMI 29.7
[2025-05-09 09:14] LABS: #Basophils 0.04 10x3/uL (0.0-0.2); #Eosinophils 0.14 10x3/uL (0.0-0.7); #Monocytes 0.71 10x3/uL (0.11-0.59); #Neutrophils 4.63 10x3/uL (1.40-6.50); %Basophils 0.5 % (0.0-1.0); %Eosinophils 1.8 % (0.0-10.0); %Lymphocytes 30.7 % (21.0-51.0); %Monocytes 8.9 % (0.0-10.0); %Neutrophils 58.0 % (42.0-75.0); Hematocrit 42.9 % (42.0-52.0); Hemoglobin 14.0 g/dL (14.0-18.0); Mean Corpuscular Hemoglobin 28.8 pg (27.0-31.0); Mean Corpuscular Volume 88.3 fL (78.0-98.0); Platelet Count 195 10x3/uL (130-400); Red Blood Cell (RBC) Count 4.86 mill/uL (4.70-6.10); White Blood Cell (WBC) Count 7.98 10x3/uL (4.8-10.8)
[2025-05-09 09:24] LABS: Anion Gap 13 mmol/L (10-20); BUN (Urea Nitrogen) 21 mg/dL (8.4-25.7); Calc. Creatinine Clearance 90 mL/min (70-130); Calcium 9.0 mg/dL (7.8-10.44); Carbon Dioxide 29 mmol/L (23-31); Chloride 107 mmol/L (98-107); Glucose 82 mg/dL (80-115); Potassium 4.7 mmol/L (3.5-5.1); Sodium 144 mmol/L (136-145)
[2025-05-09 09:35] LABS: INR-International Normal Ratio 2.1; Prothrombin Time 23.8 sec (12.0-14.7)
[2025-05-09 09:36] LABS: PTT 41.3 sec (22.9-36.1)
[2025-05-09] MEDS ORDERED: Lidocaine 1% PF 5 ML VIAL ONE (12:22)
[2025-05-09] MEDS ORDERED: PROPOFOL 200 MG/20 ML VIAL ONE (12:25)
== END 2025-05-09 13:11 | disposition home or self-care (01) ==
LOC: SDC 08:31
PROVIDERS: ATTEND Internal Medicine Cardiovascular Disease
PROC: 5A2204Z Restoration of Cardiac Rhythm, Single (ICD-10-PCS; principal; 2025-05-09)
DX: I48.0 Paroxysmal atrial fibrillation (principal); I49.5 Sick sinus syndrome; E78.5 Hyperlipidemia, unspecified; Z79.01 Long term (current) use of anticoagulants; Z79.899 Other long term (current) drug therapy
CPT/HCPCS: 80048; 85025; 85610; 85730; 92960; J2704